=== PATIENT | male | born 1990 | race Caucasian/White ===

== ENCOUNTER 2023-08-17 16:15 | Emergency (ER) | payer MEDICAID ==
[~2023-08-17] VITALS: Ht 177.8 cm; Wt 95.3 kg
[2023-08-17 17:06] VITALS: BP_SYST 136; PULSE 79; RESP 16; TEMP 97.3; O2SAT 98
[2023-08-17] MEDS ORDERED: PERC10 PO (19:02)
[2023-08-17] MEDS ORDERED: KETOROLAC TROMETHAMINE 60 MG/2 ML VIAL IM ONE (19:15)
[2023-08-17] MEDS ORDERED: ONDANSETRON 4 MG ODT TAB PO ONE (19:15)
[2023-08-17] MEDS ORDERED: cefTRIAXone 1 GM VIAL IM ONE (19:15)
[2023-08-17] MEDS ORDERED: MORPHINE 4 MG INJ. 4 MG/ML VIAL IVP ONE (19:15)
[2023-08-17] MEDS ORDERED: LIDOCAINE 1% 10 MG/ML, 20 ML MDV INJ ONE (19:30)
[2023-08-17] MEDS ORDERED: MORPHINE 4 MG INJ. 4 MG/ML VIAL IM ONE (19:30)
[2023-08-17 20:25] VITALS: BP_SYST 126; PULSE 68; RESP 18; TEMP 97.3; O2SAT 97
== END 2023-08-17 20:25 | disposition home or self-care (01) ==
LOC: SED 16:15
DX: L03.012 Cellulitis of left finger (principal); Z79.899 Other long term (current) drug therapy
CPT/HCPCS: 99284; 29130; 96372; Q0162; J0696; J1885; J2001; J2270